=== PATIENT | male | born 1960 | race Caucasian/White ===

== ENCOUNTER 2024-08-31 09:59 | Day surgery (SDC) | payer OTHER, SELFPAY ==
[2024-08-30 08:11] VITALS: BMI 37.7
--- NOTE | 2024-08-30 09:38 | HO.ANESPROP2 ---
Documented by User: Mirna Rutherford NP 08/30/24 09:39 HPI - Anesthesia Eval Consult details Narrative: 64yo M for Colonoscopy [facility] Past Medical History Medical History MATT (obstructive sleep apnea) Osteoarthritis DVT of lower extremity (deep venous thrombosis) Anxiety DM type 2 (diabetes mellitus, type 2) Surgical History Surgical History History of total right knee replacement (TKR) Hx of colonoscopy Social History Social History Are you a primary healthcare project manager to a significant other at home: No Do you presently have visiting nurse or other home services: No Patient Tobacco Use Status: Former Tobacco user Use of substances other than those prescribed or required for medical reasons: No Have you been hit, kicked, punched, or otherwise hurt by someone within the past year? If so, by whom?: No Are you DNR?: No Advance Directives: No Advance Directives Information Provided: Yes Recently lost weight without trying: No Meds Allergies Allergy/AdvReac Type Severity Reaction Status Date / Time No Known Allergies Allergy Verified 08/30/24 08:13 Home Medications ?Medication ?Instructions ?Recorded ?Confirmed ?Last Taken ?Type bupropion HCl 150 mg 24 hr tablet, 150 mg PO BID 08/30/24 08/30/24 Unknown History extended release clonazepam 0.5 mg tablet 0.5 mg PO BID 08/30/24 08/30/24 Unknown History metformin 500 mg tablet,extended 500 mg PO TID 08/30/24 08/30/24 Unknown History release 24 hr Exam Height,Weight and Vital Signs: Height 6 ft 2 in Weight 133.356 kg Assessment and Plan Assessment Anesthesia Assessment: Chart Reviewed Documented by User: Miladys Fitzpatrick MD 08/31/24 12:43 [facility] Past Medical History Medical History MATT (obstructive sleep apnea) Osteoarthritis DVT of lower extremity (deep venous thrombosis) Anxiety DM type 2 (diabetes mellitus, type 2) Family History Family history of problems with anesthesia: No Surgical History Surgical History History of total right knee replacement (TKR) Hx of colonoscopy History of Problems with Anesthesia: No Social History Social History Are you a primary healthcare project manager to a significant other at home: No Do you presently have visiting nurse or other home services: No Patient Tobacco Use Status: Former Tobacco user Use of substances other than those prescribed or required for medical reasons: No Have you been hit, kicked, punched, or otherwise hurt by someone within the past year? If so, by whom?: No Are you DNR?: No Advance Directives: No Advance Directives Information Provided: Yes Recently lost weight without trying: No Meds Allergies Allergy/AdvReac Type Severity Reaction Status Date / Time No Known Allergies Allergy Verified 08/30/24 08:13 Home Medications ?Medication ?Instructions ?Recorded ?Confirmed ?Last Taken ?Type bupropion HCl 150 mg 24 hr tablet, 150 mg PO BID 08/30/24 08/30/24 Unknown History extended release clonazepam 0.5 mg tablet 0.5 mg PO BID 08/30/24 08/30/24 Unknown History metformin 500 mg tablet,extended 500 mg PO TID 08/30/24 08/30/24 Unknown History release 24 hr Exam Airway Mallampati Class: II TM Dist: >3cm Neck ROM: Full Heart: rrr Lungs: cta Assessment and Plan Assessment Anesthesia Assessment: Anesthesia Plan Discussed Final Anesthetic Review Family History of Problems with Anesthesia: No History of Problems with Anesthesia: No NPO: Yes ASA Class: III Final Preanesthetic Review: No Changes in Pt Med Stat, Meds/Allgs Chart Reviewed, Consent Obtained/Reviewed and Anes Risks/Benef Reviewed Patient Risk: Intermediate Procedure Risk: Low Anesthetic Plan Anesthetic Plan: MAC: Disposition: Standard PACU
[2024-08-31 10:49] VITALS: BP 147/76; PULSE 60; RESP 16; TEMP 36.7; O2SAT 99; BMI 37.5
[2024-08-31] MEDS: Lactated Ringers 1,000 ML 100 ML IVCONT (11:01)
[2024-08-31 11:04] LABS: Glucose, Whole Blood 143 mg/dL (60-115)
--- NOTE | 2024-08-31 11:39 | MHC.SHP ---
Pre-Procedural Eval Section A - 24 Hr Update-Section A only Date of Service: 08/31/24 The patient is an INPATIENT: No Changes since office visit: No Cold of Flu in the past 2 weeks, No New Medical Problems, No Changes in Medication and No Patient answered all questions The patient has been examined within 24 hours of the surgical procedure. The History & Physical has been completed within 30 days and I have reviewed it.: Yes Section B - Complete if H&P > 30 days Chief Complaint: screening Allergies: Allergies Allergy/AdvReac Type Severity Reaction Status Date / Time No Known Allergies Allergy Verified 08/30/24 08:13 Plan I have reviewed the history and physical and performed a pertinent physical examination on my patient. No changes have occurred unless specified. Time Spent With Patient Time: Total time managing care of this patient today ____ minutes.
[2024-08-31 12:21] VITALS: BP 120/66; PULSE 75; RESP 16; TEMP 36.1; O2SAT 95
[2024-08-31 12:36] VITALS: BP 113/75; PULSE 60; RESP 16; TEMP 36.1; O2SAT 97
--- NOTE | 2024-08-31 13:39 | OP_ITS ---
DATE OF SERVICE: 08/31/2024 SURGEON: Gume Nathan MD INDICATIONS: Colon cancer screening. PREOPERATIVE DIAGNOSIS: POSTOPERATIVE DIAGNOSIS: PROCEDURE PERFORMED: Colonoscopy to the terminal ileum. ESTIMATED BLOOD LOSS: COMPLICATIONS: ANESTHESIA: Monitored anesthesia care. ASSISTANTS: SPECIMENS: DESCRIPTION OF PROCEDURE: A history and physical was performed. The risks and benefits of the procedure were explained to the patient. Informed consent was obtained. The patient was placed in the left lateral decubitus position. A digital rectal exam was performed and was found to be normal. The Olympus pediatric video colonoscope was introduced into the rectum and advanced to the cecum. The cecum was identified by transillumination, palpation, and identification of ileocecal valve. Examination was performed. The scope was removed. He tolerated the procedure well and was returned to the recovery area in stable condition. FINDINGS: The terminal ileum was examined and appeared normal. The visualized colonic mucosa was within normal limits without evidence of masses or ulcers. No polyps were identified. The quality of the prep was good. Retroflexed examination showed some small internal hemorrhoids. There was mild sigmoid diverticulosis. IMPRESSION: Normal colonoscopy. RECOMMENDATION: 1. Follow up as needed. 2. Repeat colonoscopy is recommended in 5 years due to family history of colon cancer. MD ALICE Acosta/ERIK / [id number]
== END 2024-08-31 12:49 | disposition home or self-care (01) ==
PROVIDERS: PCP Internal Medicine; Visit Provider Internal Medicine Gastroenterology
PROC: 0DJD8ZZ Inspection of Lower Intestinal Tract, Via Natural or Artificial Opening Endoscopic (ICD-10-PCS; CPT 45378; principal; 2024-08-31 11:40)
DX: Z12.11 Encounter for screening for malignant neoplasm of colon (principal); Z86.0101 Personal history of adenomatous and serrated colon polyps; Z80.0 Family history of malignant neoplasm of digestive organs; K57.30 Diverticulosis of large intestine without perforation or abscess without bleeding; K64.8 Other hemorrhoids; E11.9 Type 2 diabetes mellitus without complications; F41.9 Anxiety disorder, unspecified; G47.33 Obstructive sleep apnea (adult) (pediatric); M19.90 Unspecified osteoarthritis, unspecified site; Z79.84 Long term (current) use of oral hypoglycemic drugs; Z79.899 Other long term (current) drug therapy; Z85.820 Personal history of malignant melanoma of skin; Z86.718 Personal history of other venous thrombosis and embolism; Z96.651 Presence of right artificial knee joint; Z87.891 Personal history of nicotine dependence; Z99.89 Dependence on other enabling machines and devices
CPT/HCPCS: 45378; 82947; J2003; J2704